=== PATIENT | male | born 1970 | race Caucasian/White ===

== ENCOUNTER 2016-12-28 10:20 | Emergency (ER) | payer BC ==
[2016-12-28 10:31] VITALS: BMI 29.5
[2016-12-28] MEDS ORDERED: ALBUTEROL SO4 2.5/IPRATROPIUM 0.5 INH SOL 3 ML VIAL.NEB. NEB ONE ×5 (10:32→17:52)
[2016-12-28] MEDS ORDERED: predniSONE 20 MG TABLET (UD) PO ONE (11:13)
--- NOTE | 2016-12-28 11:18 | PDOC ---
History of Present Illness - General Chief Complaint: Shortness of Breath Stated Complaint: SOB Time Seen by Provider: 12/28/16 10:54 History Source: Patient Exam Limitations: No Limitations - History of Present Illness Initial Comments: 12/28/16 11:14 46-year-old male with history of asthma presents to ED with worsening cough and wheezing despite taking his nebulizer and inhaler patient states symptoms began while outside smoking 3 days ago and now causing him shortness of breath with exertion. Patient denies fever, chills, chest pain sore throat, or weakness. Timing/Duration: reports: other (3 days) Severity: reports: moderate Possible Cause: Yes: occasional episodes Associated Symptoms: reports: shortness of breath, wheezing Past History - Past Medical History Allergies/Adverse Reactions: Allergies Allergy/AdvReac Type Severity Reaction Status Date / Time No Known Drug Allergies Allergy Verified 12/28/16 10:25 Home Medications: Ambulatory Orders Albuterol Sulfate Inhaler - [Ventolin HFA Inhaler -] 1 - 2 inh PO Q4H PRN Asthma: Yes COPD: Yes - Psycho/Social/Smoking Cessation Hx Anxiety: No Suicidal Ideation: No Smoking History: Current every day smoker Have you smoked in the past 12 months: Yes Number of Cigarettes Smoked Daily: 20 Information on smoking cessation initiated: Yes 'Breaking Loose' booklet given: 12/28/16 Hx Alcohol Use: No Drug/Substance Use Hx: No Substance Use Type: None Patient Lives Alone: No Respiratory Specific PMHX - Complaint Specific PMHX Bronchitis: Yes Review of Systems - Review of Systems Able to Perform ROS?: Yes Constitutional: No: Symptoms Reported HEENTM: No: Symptoms Reported Respiratory: Yes: Cough, SOB with Exertion, Wheezing, Productive cough Cardiac (ROS): No: Symptoms Reported ABD/GI: No: Symptoms Reported : No: Symptoms Reported Musculoskeletal: No: Symptoms Reported Integumentary: No: Symptoms Reported Neurological: No: Symptoms reported Endocrine: No: Symptoms Reported Hematologic/Lymphatic: No: Symptoms Reported *Physical Exam - Vital Signs Last Vital Signs Temp Pulse Resp BP Pulse Ox 98.5 F 103 H 18 123/71 91 L 12/28/16 10:26 12/28/16 10:26 12/28/16 10:26 12/28/16 10:26 12/28/16 10:26 - Physical Exam General Appearance: Yes: Nourished, Appropriately Dressed. No: Apparent Distress HEENT: positive: EOMI, [place]. negative: Pale Conjunctivae Neck: positive: Supple Respiratory/Chest: positive: Accessory Muscle Use (intercostal), Wheezing ( inspiratory and expiratory with coarse breath sounds throughout). negative: Respiratory Distress Cardiovascular: positive: Regular Rhythm, Regular Rate. negative: Murmur Gastrointestinal/Abdominal: positive: Soft. negative: Tenderness Extremity: positive: Normal Capillary Refill. negative: Pedal Edema Integumentary: positive: Normal Color, Warm, Moist Neurologic: positive: Motor Strength 5/5 (ambulatory) ED Treatment Course - LABORATORY CBC & Chemistry Diagram: 12/28/16 14:10 12/28/16 14:10 - RADIOLOGY Radiology Studies Ordered: Category Date Time Status CHEST X-RAY PORTABLE* [RAD] Stat Radiology 12/28/16 11:13 Ordered - Medications Given in the ED: ED Medications Discontinued Medications Generic Name Dose Route Start Last Admin Trade Name Freq PRN Reason Stop Dose Admin Albuterol/Ipratropium 1 amp 12/28/16 10:32 12/28/16 10:33 Duoneb - NEB 12/28/16 10:33 1 amp NOW ONE Administration Medical Decision Making - Medical Decision Making 12/28/16 11:17 Patient with history of asthma and a pack per day smoker presents with wheezing and cough with yellowish phlegm. On exam patient had O2 sat of 92% with inspiratory Wheezing with coarse breath sounds throughout. Patient's heart rate 92. Patient ordered for DuoNeb [id number], prednisone, and chest x-ray. 12/28/16 12:42 Chest x-ray shows no evidence of pneumonia, CHF, pleural effusion or pneumothorax. Patient will be revitalized and reevaluated. 12/28/16 13:20 Patient reexamined and satting at 99% on room air but still with mild expiratory wheeze to the right side. Patient will be observed for another hour decided disposition at that time. Patient does state feeling better. 12/28/16 17:52 CT shows no gross evidence of PE within the main pulmonary artery and its proximal branches bilaterally. There is a 1.2 left upper lobe nodule that was visualized on prior x-ray from 2013 that has been unchanged. Patient be discharged home after receiving of 50 1F and a prescription for prednisone. Patient states feeling much better. Minimal wheezing auscultated to the right lobe on expiration. *DC/Admit/Observation/Transfer Diagnosis at time of Disposition: Exacerbation of asthma - Discharge Dispostion Disposition: HOME Condition at time of disposition: Improved - Referrals Referrals: Lalo Mars MD [Primary Care Provider] - - Patient Instructions Printed Discharge Instructions: DI for Asthma -- Adult Additional Instructions: Please use your inhaler and nebulizer as needed for wheezing and cough. I do recommend he start prednisone tomorrow since your given your first dose here in the ER and follow-up with your PCP Dr. Mars. If your symptoms worsen despite above recommendations please return to the ED.
[2016-12-28] MEDS ORDERED: predniSONE 20 MG TABLET (UD) ONE (11:42)
[2016-12-28] MEDS: ALBUTEROL SO4 2.5/IPRATROPIUM 0.5 INH SOL 3 ML VIAL.NEB. NEB SCH ×2 (11:46→12:09)
[2016-12-28] MEDS ORDERED: MAGNESIUM SULF 50% (8.12 MEQ/2 ML-1 GM VIAL) IVPB ONE (14:09)
[2016-12-28 14:31] LABS: BASOPHIL 0.4 % (0-2.0); EOSINOPHIL 4.2 % (0-4.5); MCH 32.7 pg (25.7-33.7); MCHC 33.4 g/dl (32.0-35.9); MEAN CELL VOLUME 97.9 fl (80-96); MEAN PLT VOLUME 6.6 fl (7.5-11.1); NEUTROPHILS 66.4 % (42.8-82.8); PLATELET COUNT 186 K/MM3 (134-434); RDW 13.6 % (11.9-15.9); WHITE BLOOD COUNT 7.1 K/mm3 (4.0-10.0)
[2016-12-28] MEDS ORDERED: MAGNESIUM SULF 50% (8.12 MEQ/2 ML-1 GM VIAL) ONE (14:32)
[2016-12-28 14:48] LABS: ALBUMIN 3.7 g/dl (3.4-5.0); ALK PHOS 81 U/L (45-117); ANION GAP 13 (8-16); BILIRUBIN,TOTAL 0.3 mg/dL (0.2-1.0); CALCIUM 8.4 mg/dL (8.5-10.1); CO2 25 mmol/L (21-32); COCKROFT - GAULT 152.61; GLUCOSE,RANDOM 147 mg/dL (74-106); SGOT/AST 14 U/L (15-37); SGPT/ALT 18 U/L (12-78); TOT PROT 7.3 g/dl (6.4-8.2)
[2016-12-28 18:09] VITALS: PULSE 110
[2016-12-28 18:13] VITALS: BP 128/74; TEMP 98.6
== END 2016-12-28 18:09 | disposition home or self-care (01) ==
LOC: JER 10:20
PROC: 3E0F7GC Introduction of Other Therapeutic Substance into Respiratory Tract, Via Natural or Artificial Opening (ICD-10-PCS; principal; 2016-12-28)
PROC: 3E0F7GC Introduction of Other Therapeutic Substance into Respiratory Tract, Via Natural or Artificial Opening (ICD-10-PCS; 2016-12-28)
PROC: 3E0F7GC Introduction of Other Therapeutic Substance into Respiratory Tract, Via Natural or Artificial Opening (ICD-10-PCS; 2016-12-28)
PROC: 3E033GC Introduction of Other Therapeutic Substance into Peripheral Vein, Percutaneous Approach (ICD-10-PCS; 2016-12-28)
DX: J45.901 Unspecified asthma with (acute) exacerbation (principal)
CPT/HCPCS: 36415; 71010-TC; 71275-TC; 80053; 83735; 85025; 85379; 99284-25